=== PATIENT | female | born 1955 | race Asian ===

== ENCOUNTER 2023-11-21 01:31 | Emergency (ER) | payer OTHER ==
[~2023-11-21] VITALS: Ht 157.5 cm; Wt 68.2 kg
[2023-11-21 01:37] VITALS: TEMP 97.6
[2023-11-21 02:03] LABS: BASOPHILS % (AUTO) 0.8 % (0.0-2.0); EOSINOPHILS % (AUTO) 3.3 % (1.0-6.0); HEMATOCRIT 34.6 % (36-46); HEMOGLOBIN 11.8 g/dL (12.0-16.0); LYMPHOCYTES # (AUTO) 2.9 K/uL (1.0-4.8); LYMPHOCYTES % (AUTO) 23.9 % (22.0-44.0); MEAN CORPUSCULAR HEMOGLOBIN 29.6 pg (26.0-34.0); MEAN CORPUSCULAR HGB CONC 34.1 G/dL (31.0-37.0); MEAN CORPUSCULAR VOLUME 87 fL (80-100); MONOCYTES % (AUTO) 8.3 % (2.0-9.0); NEUTROPHILS # (AUTO) 7.7 K/uL (1.8-7.7); NEUTROPHILS % (AUTO) 63.7 % (40.0-70.0); PLATELET COUNT (AUTO) 291 K/uL (150-450); RED BLOOD CELL COUNT(AUTO) 3.98 MIL/uL (4.00-5.20); RED CELL DISTRIBUTION WIDTH 15.4 % (11.5-14.5); WHITE BLOOD COUNT (AUTO) 12.1 K/uL (4.5-11.0)
[2023-11-21] MEDS: ACETAMINOPHEN 325 MG TABLET PO ONE (02:10)
[2023-11-21 02:12] VITALS: BP 144/84; PULSE 91; RESP 20
[2023-11-21 02:16] LABS: ANION GAP 10 mmol/L (8-16); CALCIUM, TOTAL 9.1 mg/dL (8.8-10.5); CARBON DIOXIDE 27 mmol/L (22-29); CHLORIDE 103 mmol/L (98-107); CREATININE 0.88 mg/dL (0.60-1.30); GLOMERULAR FILTR. RATE CALC > 60 mL/min (>60); GLUCOSE,RANDOM 107 mg/dL (70-110); POTASSIUM 3.5 mmol/L (3.5-5.1); SODIUM SERUM 140 mmol/L (136-145); UREA NITROGEN, BLOOD 18 mg/dL (7-18)
[2023-11-21 02:21] LABS: ALANINE AMINOTRANSFERASE 22 U/L (12-78); ALBUMIN 3.7 g/dL (3.4-5.0); ALKALINE PHOSPHATASE 99 U/L (46-116); ASPARTATE AMINOTRANSFERASE 17 U/L (15-37); BILIRUBIN,TOTAL 0.5 mg/dL (0.1-1.0); TOTAL PROTEIN, SERUM 7.7 g/dL (6.4-8.2)
[2023-11-21 02:23] LABS: TROPONIN I-HIGH SENSITIVITY 4 ng/L (<51)
== END 2023-11-21 02:45 | disposition home or self-care (01) ==
LOC: EMS 01:32
DX: R00.2 Palpitations (principal); I10 Essential (primary) hypertension; Z90.710 Acquired absence of both cervix and uterus
CPT/HCPCS: 80053; 84484; 85025; 93005; 99284